=== PATIENT | male | born 1970 | race Caucasian/White ===

== ENCOUNTER 2017-07-10 11:33 | Emergency (ER) | payer MEDICAID ==
[2017-07-10 11:58] VITALS: BP 195/86
[2017-07-10] MEDS ORDERED: Diphtheria,Pertussis(Acell),Tetanus Vaccine 0.5 ML SDV IM ONE (12:03)
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
[2017-07-10] MEDS ORDERED: Lidocaine 1% 20 ML MDV INJECT ONE (12:12)
[2017-07-10] MEDS ORDERED: Bacitracin Oint 1 GM U/D Packet TOP ONE (12:13)
[2017-07-10] MEDS ORDERED: cefTRIAXone 1 GM Vial IM ONE (12:44)
[2017-07-10] MEDS ORDERED: Acetaminophen/HYDROcodone 325-5 MG Tab PO ONE (12:45)
--- NOTE | 2017-07-12 09:17 | CR ---
Hand Comp Min 3V Lt HISTORY: Injury COMPARISON: None FINDINGS: Soft tissue swelling adjacent to the fifth metacarpal. No fracture or dislocation. No radio paque foreign body.
== END 2017-07-10 13:09 | disposition home or self-care (01) ==
LOC: JP.ED 11:33
DX: S61.431A Puncture wound without foreign body of right hand, initial encounter (principal); F17.210 Nicotine dependence, cigarettes, uncomplicated; Z79.899 Other long term (current) drug therapy; W31.9XXA Contact with unspecified machinery, initial encounter
CPT/HCPCS: 73130; 90471; 90715; 96372; 99284; A9270; J0696

== ENCOUNTER 2017-09-12 12:36 | Emergency (ER) | payer MEDICAID ==
[2017-09-12 12:50] VITALS: BP 138/89
[2017-09-12] MEDS ORDERED: Ketorolac 60 MG/2 ML SDV IM ONE (13:22)
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
--- NOTE | 2017-09-13 12:18 | CR ---
Shoulder Comp Rt INDICATION: injury FINDINGS: Well-corticated calcification adjacent to the distal clavicle has an appearance most consis tent with an accessory ossicle or secondary to old trauma. Clinically correlate with patient point te nderness. Right shoulder otherwise negative.
--- NOTE | 2017-09-13 12:19 | CR ---
Chest 2V INDICATION: injury FINDINGS: Comparison 11/06/2016. Shallow inspiration. Chest otherwise negative.
== END 2017-09-12 14:06 | disposition home or self-care (01) ==
LOC: JP.ED 12:36
DX: S40.011A Contusion of right shoulder, initial encounter (principal); R07.81 Pleurodynia; I10 Essential (primary) hypertension; F17.210 Nicotine dependence, cigarettes, uncomplicated; Z79.01 Long term (current) use of anticoagulants; Z79.899 Other long term (current) drug therapy; X58.XXXA Exposure to other specified factors, initial encounter
CPT/HCPCS: 71046; 73030; 96372; 99284; J1885

== ENCOUNTER 2018-01-11 16:07 | Emergency (ER) | payer MEDICAID ==
[2018-01-11 17:08] VITALS: BP 146/75
--- NOTE | 2018-01-11 17:27 | EDM.PDOC ---
ED HPI GENERAL MEDICAL PROBLEM - General Chief Complaint: Lower Extremity Injury/Pain Stated Complaint: HURT LEFT LEG Time Seen by Provider: 01/11/18 17:20 Source of Information: Reports: Patient, Family, RN Notes Reviewed History Limitations: Reports: No Limitations - History of Present Illness INITIAL COMMENTS - FREE TEXT/NARRATIVE: 47-year-old gentleman presents emergency department today following trauma at work he was hit by a piece of sandblasting equipment in his left thigh he is experiencing pain in his thigh no bruising he does take Coumadin his INR was checked last week. By report he states it was high, his only complaint is pain Left Leg Pain Score (Numeric/FACES): 5 - Related Data Allergies Allergy/AdvReac Type Severity Reaction Status Date / Time No Known Allergies Allergy Verified 01/11/18 17:08 Home Meds: Home Meds Citalopram Hydrobromide [Citalopram HBr] 1 tab PO DAILY 03/21/16 [History] Eplerenone 2 tab PO DAILY 03/21/16 [History] Warfarin [Coumadin] 1 tab PO ASDIRECTED 03/21/16 [History] Warfarin [Coumadin] 7.5 mg PO ASDIRECTED 04/11/16 [History] Past Medical History HEENT History: Reports: Impaired Vision, Other (See Below) Other HEENT History: central serious rentinopathy Cardiovascular History: Reports: Hypertension Respiratory History: Reports: PE Musculoskeletal History: Reports: Back Pain, Chronic Psychiatric History: Reports: Anxiety Hematologic History: Reports: Anticoagulation Therapy, Bleeding Disorder - Infectious Disease History Infectious Disease History: Reports: Chicken Pox - Past Surgical History GI Surgical History: Reports: Colonoscopy Musculoskeletal Surgical History: Reports: Arthroscopic Procedure Social & Family History - Tobacco Use Smoking Status *Q: Current Every Day Smoker Years of Tobacco use: 15 Packs/Tins Daily: 0.5 Used Tobacco, but Quit: No Second Hand Smoke Exposure: Yes - Caffeine Use Caffeine Use: Reports: Coffee - Alcohol Use Days Per Week of Alcohol Use: 3 Number of Drinks Per Day: 3 Total Drinks Per Week: 9 - Recreational Drug Use Recreational Drug Use: No Review of Systems - Review of Systems Review Of Systems: See Below Musculoskeletal: Reports: Leg Pain, Muscle Pain Skin: Reports: No Symptoms Neurological: Reports: No Symptoms ED EXAM, GENERAL - Physical Exam Exam: See Below Free Text/Narrative:: Examination of the left leg I don't appreciate any bruising there is no edema noted does have point tenderness outer aspect of the left thigh Exam Limited By: No Limitations General Appearance: Alert, WD/WN, No Apparent Distress Course - Vital Signs Last Recorded V/S: Last Vital Signs Temp 98.1 F 01/11/18 17:06 Pulse 92 01/11/18 17:06 Resp 16 01/11/18 17:06 BP 146/75 H 01/11/18 17:06 Pulse Ox 95 01/11/18 17:06 Departure - Departure Time of Disposition: 17:27 Disposition: Home, Self-Care 01 Condition: Good Clinical Impression: Contusion of thigh - Discharge Information Referrals: German Lopez MD [Primary Care Provider] - Additional Instructions: Use ibuprofen as needed for pain control, use hydrocodone for breakthrough pain, Please followup with your primary care provider in 3-5 days if not better, please call return to the emergency department with worsening of symptoms. - Assessment/Plan Plan: Assessment Acuity = acute Site and laterality = contusion left thigh Etiology = secondary to trauma Manifestations = none Location of injury = Home Lab values = patient declined any further workup no x-rays were done or lab work done Plan Prescription written for hydrocodone 5/325 one tab by mouth 3 times a day when necessary total #6 follow-up with primary care 3-5 days if not better This note was dictated using [employer] voice recognition software please call with any questions on syntax or grammar.
== END 2018-01-11 17:34 | disposition home or self-care (01) ==
LOC: JP.ED 16:07
DX: S70.12XA Contusion of left thigh, initial encounter (principal); I10 Essential (primary) hypertension; F17.210 Nicotine dependence, cigarettes, uncomplicated; Z79.01 Long term (current) use of anticoagulants; Z79.899 Other long term (current) drug therapy; W22.8XXA Striking against or struck by other objects, initial encounter; Y99.0 Civilian activity done for income or pay
CPT/HCPCS: 99283

== ENCOUNTER 2018-12-26 19:38 | Emergency (ER) | payer MEDICAID ==
[2018-12-26 19:55] VITALS: BP 153/95
[2018-12-26] MEDS ORDERED: Sodium Chloride 0.9% 1,000 ML IV SCH (20:30)
--- NOTE | 2018-12-26 20:37 | EDM.PDOC ---
ED HPI GENERAL MEDICAL PROBLEM - General Chief Complaint: Respiratory Problem Stated Complaint: HAVING TROUBLE BREATHING Time Seen by Provider: 12/26/18 20:05 Source of Information: Reports: Patient, Family History Limitations: Reports: No Limitations - History of Present Illness INITIAL COMMENTS - FREE TEXT/NARRATIVE: 48-year-old male with left-sided chest pain for the past 2 days, pain with breathing and intermittent shortness of breath. 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 No fevers or chills, no recent trauma. Onset: Gradual Duration: Day(s): Location: Reports: Chest (Left anterior chest) Quality: Reports: Pressure, Sharp, Stabbing Worsens with: Reports: Other, Movement Associated Symptoms: Reports: No Other Symptoms Chest Pain Score (Numeric/FACES): 7 - Related Data Allergies Allergy/AdvReac Type Severity Reaction Status Date / Time No Known Allergies Allergy Verified 12/26/18 19:52 Home Meds: Home Meds Citalopram Hydrobromide [Citalopram HBr] 20 mg PO DAILY 03/21/16 [History] Eplerenone 2 tab PO DAILY 03/21/16 [History] Warfarin [Coumadin] 10 mg PO ASDIRECTED 03/21/16 [History] Warfarin [Coumadin] 7.5 mg PO ASDIRECTED 04/11/16 [History] Simvastatin 20 mg PO BEDTIME 12/26/18 [History] Past Medical History HEENT History: Reports: Impaired Vision, Other (See Below) Other HEENT History: central serious rentinopathy Cardiovascular History: Reports: Blood Clots/VTE/DVT, High Cholesterol, Hypertension Respiratory History: Reports: PE Musculoskeletal History: Reports: Back Pain, Chronic Psychiatric History: Reports: Anxiety Hematologic History: Reports: Anticoagulation Therapy, Bleeding Disorder - Infectious Disease History Infectious Disease History: Reports: Chicken Pox - Past Surgical History GI Surgical History: Reports: Colonoscopy Musculoskeletal Surgical History: Reports: Arthroscopic Procedure Social & Family History - Tobacco Use Smoking Status *Q: Current Every Day Smoker Years of Tobacco use: 20 Packs/Tins Daily: 0.5 - Caffeine Use Caffeine Use: Reports: Coffee - Recreational Drug Use Recreational Drug Use: No ED ROS GENERAL - Review of Systems Review Of Systems: See Below Constitutional: Denies: Fever, Chills Respiratory: Reports: Shortness of Breath. Denies: Cough Cardiovascular: Reports: Chest Pain. Denies: Dyspnea on Exertion, Palpitations GI/Abdominal: Denies: Nausea, Vomiting Musculoskeletal: Reports: Other (Chronic left shoulder pain) Skin: Reports: No Symptoms ED EXAM, GENERAL - Physical Exam Exam: See Below Exam Limited By: No Limitations General Appearance: Alert, No Apparent Distress Head: Atraumatic Neck: Normal Inspection Respiratory/Chest: No Respiratory Distress, Lungs Clear, Other (I can reproduce tenderness to the left costochondral area of the chest) Cardiovascular: Regular Rate, Rhythm GI/Abdominal: Soft, Non-Tender Course - Vital Signs Last Recorded V/S: Last Vital Signs Temp 96.3 F 12/26/18 19:50 Pulse 86 12/26/18 19:50 Resp 20 12/26/18 19:50 BP 153/95 H 12/26/18 19:50 Pulse Ox 98 12/26/18 19:50 - Orders/Labs/Meds Meds: Medications Discontinued Medications Generic Name Dose Route Start Last Admin Trade Name Freq PRN Reason Stop Dose Admin Sodium Chloride 1,000 mls @ 1,000 mls/hr 12/26/18 20:30 12/26/18 20:39 Normal Saline IV 1,000 mls/hr ASDIRECTED COSME Administration Sodium Chloride 100 mls @ 3 mls/sec 12/26/18 20:45 12/26/18 20:55 Normal Saline IV 3 mls/sec ASDIRECTED COSME Administration Iopamidol 100 ml 12/26/18 20:45 12/26/18 20:55 Isovue-370 (76%) IV 100 ml . DIRECTED COSME Administration Sodium Chloride 10 ml 12/26/18 20:41 12/26/18 20:55 Saline Flush FLUSH 10 ml ASDIRECTED PRN Administration Keep Vein Open - Re-Assessments/Exams Free Text/Narrative Re-Assessment/Exam: 12/26/18 21:29 CT of the chest and hands with IV contrast was negative for PE. Patient was reassured and will continue his current medications, adding Tylenol for costochondritis and increasing activity as tolerated. Departure - Departure Time of Disposition: 21:37 Disposition: Home, Self-Care 01 Condition: Good Clinical Impression: Acute costochondritis - Discharge Information Instructions: Costochondritis, [id number] Referrals: Lopez,German C, MD [Primary Care Provider] - Forms: ED Department Discharge Care Plan Goals: Ice to the sore area over the next couple of days, increasing activity as tolerated and Tylenol may be beneficial. Consider rechecking in 2-3 days if not improving his physical therapy may be worthwhile. Return anytime if worsening such as increasing shortness of breath or fever.
[2018-12-26] MEDS ORDERED: Sodium Chloride 0.9% 10 ML Syringe FLUSH PRN (20:41)
[2018-12-26] MEDS ORDERED: Sodium Chloride 0.9% 100 ML IV SCH (20:45)
[2018-12-26] MEDS ORDERED: Iopamidol 755 Mg/ML 100 ML Bottle IV SCH (20:45)
--- NOTE | 2018-12-26 21:23 | CRLCT ---
INDICATION: Shortness of breath, history pulmonary embolism TECHNIQUE: CT chest with i.v. contrast using pulmonary angiographic technique. Coronal and sagittal reformats were obtained. CONTRAST: 100 mL Isovue 370 COMPARISON: None FINDINGS: Cardiovascular: The pulmonary arteries are unremarkable in enhancement with no evidence of acute pulmonary embolism. The heart has an unremarkable appearance and size. No sign of aneurysm in the thoracic aorta. Mediastinum: Minimal nodular tissue is present in the anterior mediastinum which may be due to thymic rebound thymic hyperplasia. Lung: There is a 4 mm nodule in the right lower lobe, abutting the right major fissure on image 79. On image 67, there is a 2 mm nodule present in the dome of the right middle lobe and in the anterior base of the right upper lobe, both too small further characterize. Pleura and pericardium: No sign of pleural effusion seen. No significant pericardial effusion is present. Chest wall and axilla: No mass or adenopathy seen. Bone: Unremarkable for age. Upper abdomen: There is a 1.6 cm cyst in the dome of the liver. A cyst is partially visualized in the right posterior segment measuring 8 mm. IMPRESSIONS: 1. No CT evidence of acute pulmonary emboli seen. 2. Subcentimeter pulmonary nodules are present within the right lung. Follow-up chest CT in 3 months is recommended to document stability. Dictated by Timothy Cuadra MD @ 12/26/2018 9:22:22 PM Please note that all CT scans at this facility use dose modulation, iterative reconstruction, and/or weight-based dosing when appropriate to reduce radiation dose to as low as reasonably achievable. Dictated by: Timothy Cuadra MD @ 12/26/2018 21:22:32 (Electronically Signed)
== END 2018-12-26 21:37 | disposition home or self-care (01) ==
LOC: JP.ED 19:38
DX: M94.0 Chondrocostal junction syndrome [Tietze] (principal); F41.9 Anxiety disorder, unspecified; I10 Essential (primary) hypertension; E78.00 Pure hypercholesterolemia, unspecified; F17.210 Nicotine dependence, cigarettes, uncomplicated; Z79.01 Long term (current) use of anticoagulants; Z79.899 Other long term (current) drug therapy
CPT/HCPCS: 71275; 96360; 99284; J7030; Q9967

== ENCOUNTER 2019-03-08 17:54 | Emergency (ER) | payer MEDICAID ==
[2019-03-08 18:28] VITALS: BP 132/94; PULSE 87
--- NOTE | 2019-03-08 18:50 | EDM.PDOC ---
ED HPI GENERAL MEDICAL PROBLEM - General Chief Complaint: Back Pain or Injury Stated Complaint: HEMATOMA Time Seen by Provider: 03/08/19 18:44 Source of Information: Reports: Patient, Family History Limitations: Reports: No Limitations - History of Present Illness INITIAL COMMENTS - FREE TEXT/NARRATIVE: pt arrived with a swelling over the rt shoulder blade area extending to the claviular area. Onset: Gradual, Other ( last 36 hours. ) Duration: Hour(s): Location: Reports: Chest Associated Symptoms: Reports: Other (pain over the shoulder blade. ) Right Shoulder Pain Score (Numeric/FACES): 8 - Related Data Allergies Allergy/AdvReac Type Severity Reaction Status Date / Time No Known Allergies Allergy Verified 03/08/19 18:30 Home Meds: Home Meds Eplerenone 2 tab PO DAILY 03/21/16 [History] Warfarin [Coumadin] 10 mg PO ASDIRECTED 03/21/16 [History] Warfarin [Coumadin] 7.5 mg PO ASDIRECTED 04/11/16 [History] Simvastatin 20 mg PO BEDTIME 12/26/18 [History] buPROPion [buPROPion XL] 150 mg PO BEDTIME 03/08/19 [History] Past Medical History HEENT History: Reports: Impaired Vision, Other (See Below) Other HEENT History: central serious rentinopathy Cardiovascular History: Reports: Blood Clots/VTE/DVT, High Cholesterol, Hypertension Respiratory History: Reports: PE Gastrointestinal History: Reports: None Musculoskeletal History: Reports: Back Pain, Chronic Psychiatric History: Reports: Anxiety Hematologic History: Reports: Anticoagulation Therapy, Bleeding Disorder - Infectious Disease History Infectious Disease History: Reports: Chicken Pox - Past Surgical History Head Surgeries/Procedures: Reports: None HEENT Surgical History: Reports: None Cardiovascular Surgical History: Reports: None Respiratory Surgical History: Reports: None GI Surgical History: Reports: Colonoscopy Musculoskeletal Surgical History: Reports: Arthroscopic Procedure Dermatological Surgical History: Reports: None Social & Family History - Tobacco Use Smoking Status *Q: Current Every Day Smoker Years of Tobacco use: 30 Packs/Tins Daily: 0.5 Used Tobacco, but Quit: No - Caffeine Use Caffeine Use: Reports: Coffee, Soda, Tea - Recreational Drug Use Recreational Drug Use: No ED ROS GENERAL - Review of Systems Review Of Systems: See Below Constitutional: Reports: No Symptoms HEENT: Reports: No Symptoms Respiratory: Reports: No Symptoms Cardiovascular: Reports: No Symptoms Endocrine: Reports: No Symptoms GI/Abdominal: Reports: No Symptoms : Reports: No Symptoms Musculoskeletal: Reports: Other (hematoma over the rt shoulder blade. ) Skin: Reports: No Symptoms ED EXAM, UPPER BACK/NECK PAIN - Physical Exam Exam: See Below Text/Narrative:: pt arrived with pain and swelling in the rt shoulder blde area. Exam Limited By: No Limitations General Appearance: Alert, Moderate Distress Ears Exam: Normal TMs Nose Exam: Normal Inspection Throat/Mouth Exam: Normal Inspection Head Exam: Atraumatic Neck Exam: Other (pt is tender in the rt lower post cervical area. There is marked swelling over his rt shoulder blade. He has a large hematoma over the blade area. This is very tender. ) Cardiovascular/Respiratory: Regular Rate, Rhythm GI/Abdominal: Soft, Non-Tender (Male) Exam: Deferred Back Exam: Normal Inspection Extremities: Normal Inspection Neurologic: Alert Psychiatric: Normal Affect Course - Vital Signs Last Recorded V/S: Last Vital Signs Temp 35.4 C 03/08/19 18:35 Pulse 87 03/08/19 18:35 Resp 16 03/08/19 18:35 BP 132/94 H 03/08/19 18:35 Pulse Ox 97 03/08/19 18:35 - Orders/Labs/Meds Labs: Laboratory Tests 03/08/19 03/08/19 03/08/19 Range/Units 18:43 18:59 18:59 WBC 8.7 (4.5-11.0) K/uL RBC 4.78 (4.30-5.90) M/uL Hgb 15.0 (12.0-15.0) g/dL Hct 43.8 (40.0-54.0) % MCV 92 (80-98) fL MCH 31 (27-31) pg MCHC 34 (32-36) % Plt Count 274 (150-400) K/uL Neut % (Auto) 57 (36-66) % Lymph % (Auto) 31 (24-44) % [place] % (Auto) 9 H (2-6) % Eos % (Auto) 3 (2-4) % Baso % (Auto) 1 (0-1) % PT 30.8 H (9.5-12.0) sec INR 3.04 H (0.80-1.20) Sodium 140 (140-148) mmol/L Potassium 4.1 (3.6-5.2) mmol/L Chloride 105 (100-108) mmol/L Carbon Dioxide 27 (21-32) mmol/L Anion Gap 8.1 (5.0-14.0) mmol/L BUN 15 (7-18) mg/dL Creatinine 1.1 (0.8-1.3) mg/dL Est Cr Clr Drug Dosing 83.02 mL/min Estimated GFR (MDRD) > 60 (>60) Glucose 92 (74-106) mg/dL Calcium 8.9 (8.5-10.1) mg/dL Total Bilirubin 0.6 (0.2-1.0) mg/dL AST 27 (15-37) U/L ALT 50 (12-78) U/L Alkaline Phosphatase 89 (46-116) U/L Total Protein 7.4 (6.4-8.2) g/dL Albumin 4.1 (3.4-5.0) g/dL Globulin 3.3 (2.3-3.5) g/dL Albumin/Globulin Ratio 1.2 (1.2-2.2) Meds: Medications Discontinued Medications Generic Name Dose Route Start Last Admin Trade Name Freq PRN Reason Stop Dose Admin Oxycodone/Acetaminophen 1 tab 03/08/19 20:01 Percocet 325-5 Mg PO 03/08/19 20:02 ONETIME ONE - Re-Assessments/Exams Free Text/Narrative Re-Assessment/Exam: 03/08/19 20:07 in the last 2 days he has had a elevated inr to 5. He does nor know of a injury. He must have leaned against something and he states he has been doing alot of overhead work. His INR is down to 3.00 at this point. He will not use coumadin tomorrow. 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 Departure - Departure Time of Disposition: 20:02 Disposition: Home, Self-Care 01 Condition: Fair Clinical Impression: Traumatic hematoma of right shoulder - Discharge Information Referrals: German Lopez MD [Primary Care Provider] - Forms: ED Department Discharge Care Plan Goals: percocet 5/325 q6h prn for pain #10. cool pack to rt shoulder, rest lying on his side to avoid pressure on the site. , no coumadin tomorrow. INR on wednesday and an appt with Dr Lopez on Wednesday. He is warned that this will sopread out and look very black and blue. Low activity.
[2019-03-08] MEDS ORDERED: Acetaminophen/oxyCODONE 325-5 MG Tab PO ONE (20:01)
--- NOTE | 2019-03-08 20:09 | CRLCR ---
INDICATION: Hematoma to right shoulder, back TECHNIQUE: Chest radiograph 2 views COMPARISON: 09/12/2017 FINDINGS: Mediastinum: The mediastinum is normal in appearance. The heart silhouette is normal in size and morphology. Lung: Both lungs are unremarkable in appearance. No sign of pleural effusion seen. No pneumothorax is identified. IMPRESSION: 1. No acute cardiopulmonary disease is seen. Dictated by: Timothy Cuadra MD @ 03/08/2019 20:07:40 (Electronically Signed)
== END 2019-03-08 20:30 | disposition home or self-care (01) ==
LOC: JP.ED 17:54
DX: S40.011A Contusion of right shoulder, initial encounter (principal); E78.00 Pure hypercholesterolemia, unspecified; I10 Essential (primary) hypertension; F41.9 Anxiety disorder, unspecified; F17.210 Nicotine dependence, cigarettes, uncomplicated; Z79.899 Other long term (current) drug therapy; Z79.01 Long term (current) use of anticoagulants; X58.XXXA Exposure to other specified factors, initial encounter
CPT/HCPCS: 36415; 71046; 80053; 85025; 85610; 99283; A9270

== ENCOUNTER 2021-08-20 10:51 | Emergency (ER) | payer MEDICAID ==
--- NOTE | 2021-08-20 11:19 | EDM.PDOC ---
ED HPI GENERAL MEDICAL PROBLEM - General Chief Complaint: Chest Pain Stated Complaint: BACK PAIN AND TROUBLE BREATHING Time Seen by Provider: 08/20/21 11:12 Source of Information: Reports: Patient, RN Notes Reviewed History Limitations: Reports: No Limitations - History of Present Illness INITIAL COMMENTS - FREE TEXT/NARRATIVE: 51-year-old gentleman presents emergency department day complaint of chest pain, he states that chest pain for about 3 days is constant in nature he rates it 8 out of 10 does feel short of breath at times has been diaphoretic no nausea does have a history of pulmonary embolism currently on Coumadin INR check today was 2.9. Middle Chest Pain Score (Numeric/FACES): 8 - Related Data Allergies Allergy/AdvReac Type Severity Reaction Status Date / Time No Known Allergies Allergy Verified 03/08/19 18:30 Home Meds: Home Meds Eplerenone 2 tab PO DAILY 03/21/16 [History] Warfarin [Coumadin] 10 mg PO ASDIRECTED 03/21/16 [History] Warfarin [Coumadin] 7.5 mg PO ASDIRECTED 04/11/16 [History] Simvastatin 20 mg PO BEDTIME 12/26/18 [History] buPROPion [buPROPion XL] 150 mg PO BEDTIME 03/08/19 [History] Past Medical History HEENT History: Reports: Impaired Vision, Other (See Below) Other HEENT History: central serious rentinopathy Cardiovascular History: Reports: Blood Clots/VTE/DVT, High Cholesterol, Hypertension Respiratory History: Reports: PE Musculoskeletal History: Reports: Back Pain, Chronic Psychiatric History: Reports: Anxiety Hematologic History: Reports: Anticoagulation Therapy, Bleeding Disorder - Infectious Disease History Infectious Disease History: Reports: Chicken Pox - Past Surgical History Head Surgeries/Procedures: Reports: None HEENT Surgical History: Reports: None Cardiovascular Surgical History: Reports: None Respiratory Surgical History: Reports: None GI Surgical History: Reports: Colonoscopy Musculoskeletal Surgical History: Reports: Arthroscopic Procedure Dermatological Surgical History: Reports: None Social & Family History - Tobacco Use Tobacco Use Status *Q: Current Every Day Tobacco User Years of Tobacco use: 25 Packs/Tins Daily: 0.5 - Caffeine Use Caffeine Use: Reports: Coffee, Soda, Tea ED ROS GENERAL - Review of Systems Review Of Systems: See Below Constitutional: Reports: Diaphoresis HEENT: Reports: No Symptoms Respiratory: Reports: Shortness of Breath Cardiovascular: Reports: Chest Pain, Dyspnea on Exertion GI/Abdominal: Reports: No Symptoms ED EXAM, GENERAL - Physical Exam Exam: See Below Exam Limited By: No Limitations General Appearance: Alert, WD/WN, No Apparent Distress Respiratory/Chest: No Respiratory Distress, Lungs Clear, Normal Breath Sounds, No Accessory Muscle Use, Chest Non-Tender Cardiovascular: Regular Rate, Rhythm, No Murmur GI/Abdominal: Soft, Non-Tender #1 Interpretation EKG Date: 08/20/21 Time: 11:19 Rhythm: NSR [place]: Normal P-Wave: Present QRS: Normal ST-T: Normal QT: Normal Comparison: NA - No Prior EKG Course - Vital Signs Last Recorded V/S: Last Vital Signs Temp 97.1 F 08/20/21 11:21 Pulse 64 08/20/21 12:27 Resp 13 08/20/21 12:27 BP 125/91 H 08/20/21 12:27 Pulse Ox 98 08/20/21 12:27 - Orders/Labs/Meds Orders: Active Orders 24 hr Category Date Time Status Cardiac Monitoring [RC] .As Directed Care 08/20/21 11:16 Active EKG 12 Lead [EK] Stat Ther 08/20/21 11:16 Ordered Labs: Laboratory Tests 08/20/21 08/20/21 Range/Units 11:25 11:25 WBC 6.0 (4.5-11.0) K/uL RBC 4.56 (4.30-5.90) M/uL Hgb 14.6 (12.0-15.0) g/dL Hct 41.9 (40.0-54.0) % MCV 92 (80-98) fL MCH 32 H (27-31) pg MCHC 35 (32-36) % Plt Count 264 (150-400) K/uL Neut % (Auto) 50.2 (36-66) % Lymph % (Auto) 33.4 (24-44) % [place] % (Auto) 11.8 H (2-6) % Eos % (Auto) 3.6 (2-4) % Baso % (Auto) 1.0 (0-1) % Sodium 139 L (140-148) mmol/L Potassium 4.0 (3.6-5.2) mmol/L Chloride 103 (100-108) mmol/L Carbon Dioxide 27 (21-32) mmol/L Anion Gap 13.0 (5.0-14.0) mmol/L BUN 19 H (7-18) mg/dL Creatinine 0.9 (0.8-1.3) mg/dL Est Cr Clr Drug Dosing 98.19 mL/min Estimated GFR (MDRD) > 60 (>60) Glucose 104 (74-106) mg/dL Calcium 8.5 (8.5-10.1) mg/dL Total Bilirubin 0.4 (0.2-1.0) mg/dL AST 29 (15-37) U/L ALT 60 (12-78) U/L Alkaline Phosphatase 63 (46-116) U/L Troponin I High Sens 9.2 (<=60.3) pg/mL Total Protein 6.6 (6.4-8.2) g/dL Albumin 3.9 (3.4-5.0) g/dL Globulin 2.7 (2.3-3.5) g/dL Albumin/Globulin Ratio 1.4 (1.2-2.2) Meds: Medications Discontinued Medications Generic Name Dose Route Start Last Admin Trade Name Freq PRN Reason Stop Dose Admin Al Hydroxide/Mg Hydroxide 15 0 ml 08/20/21 12:08 ml/ Lidocaine HCl 15 ml PO 08/20/21 12:09 ONETIME ONE Ketorolac Tromethamine 30 mg 08/20/21 11:17 08/20/21 11:32 Ketorolac 30 Mg/Ml Sdv IM 08/20/21 11:18 30 mg ONETIME ONE Administration Departure - Departure Time of Disposition: 12:39 Disposition: Home, Self-Care 01 Condition: Fair Clinical Impression: Atypical chest pain Instructions: Nonspecific Chest Pain, Adult Referrals: Toni Rodriguez MD [Primary Care Provider] - Forms: ED Department Discharge Additional Instructions: Try nonsteroidal anti-inflammatory such as naproxen or Aleve Motrin, please followup with your primary care provider in 3-5 days if not better, please call return to the emergency department with worsening of symptoms. Sepsis Event Note (ED) - Evaluation Sepsis Screening Result: No Definite Risk - Focused Exam Vital Signs: Vital Signs Temp Pulse Resp BP Pulse Ox 08/20/21 12:27 64 13 125/91 H 98 08/20/21 12:00 68 13 130/93 H 98 08/20/21 11:21 97.1 F 74 17 147/98 H 99 - My Orders Last 24 Hours: My Active Orders 08/20/21 11:16 Cardiac Monitoring [RC] .As Directed EKG 12 Lead [EK] Stat - Assessment/Plan Last 24 Hours: My Active Orders 08/20/21 11:16 Cardiac Monitoring [RC] .As Directed EKG 12 Lead [EK] Stat Plan: Assessment Acuity = acute Site and laterality = atypical chest pain Etiology = suspicious for muscle skeletal Manifestations = none Location of injury = Home Lab values = CBC, CMP, troponin, chest x-ray, EKG all within normal limits Plan He had good relief with the Toradol injection provided, have him follow-up with his primary care in the next 3 to 5 days for further evaluation he will continue anti-inflammatories at home This note was dictated using [employer] voice recognition software please call with any questions on syntax or grammar.
[2021-08-20] MEDS: Ketorolac 30 MG/ML SDV IM ONE (11:32)
--- NOTE | 2021-08-20 12:00 | CR ---
CHEST: Portable 08/20/2021 and 11:27 AM CLINICAL HISTORY:Chest pain COMPARISON:2019 FINDINGS: The heart size, pulmonary vascularity and hilar structures are normal. No infiltrate effusion or pneumothorax is seen. IMPRESSION: No acute cardiopulmonary process.
[2021-08-20 12:28] VITALS: BP 125/91; PULSE 64
[2021-08-20] MEDS: Alum Hydrox/Mag Hydrox/Simeth 15 ML, Lidocaine 2% 15 ML PO ONE ×2 (12:55)
== END 2021-08-20 13:03 | disposition home or self-care (01) ==
LOC: JP.ED 10:51
DX: R07.89 Other chest pain (principal); Z72.0 Tobacco use; Z79.01 Long term (current) use of anticoagulants; Z79.899 Other long term (current) drug therapy
CPT/HCPCS: 36415; 71045; 80053; 84484; 85025; 93005; 96372; 99285; A9270; J1885

== ENCOUNTER 2022-12-20 19:07 | Inpatient (IN) | payer MEDICAID ==
[2022-12-20] MEDS ORDERED: Sodium Chloride 0.9% 10 ML Syringe FLUSH PRN (19:34)
[2022-12-20 19:50] LABS: BASOPHILS ABSOLUTE AUTO 0.04 K/uL (0.00-0.10); BASOPHILS PERCENT AUTO 0.5 % (0.1-1.3); EOSINOPHILS ABSOLUTE AUTO 0.31 K/uL (0.00-0.40); EOSINOPHILS PERCENT AUTO 3.7 % (0.0-5.4); HEMATOCRIT 26.2 % (38.4-49.7); HEMOGLOBIN 8.6 g/dL (12.9-16.9); IMMATURE GRAN ABSOLUTE AUTO 0.03 K/uL (0.00-0.23); IMMATURE GRAN PERCENT AUTO 0.4 % (0.0-0.7); LYMPHOCYTES ABSOLUTE AUTO 2.32 K/uL (0.8-3.3); LYMPHOCYTES PERCENT AUTO 27.4 % (11.4-47.7); MEAN CORPUSCULAR HEMOGLOBIN 32.8 pg (31.6-35.5); MEAN CORPUSCULAR HGB CONC 32.8 g/dL (31.6-35.5); MONOCYTES ABSOLUTE AUTO 0.89 K/uL (0.20-0.90); MONOCYTES PERCENT AUTO 10.5 % (3.3-12.6); NEUTROPHILS ABSOLUTE AUTO 4.88 K/uL (1.0-7.6); NEUTROPHILS PERCENT AUTO 57.5 % (40.0-78.1); PLATELET COUNT,PLT 302 K/uL (130-375); RED BLOOD CELL COUNT 2.62 M/uL (4.14-5.76); WHITE BLOOD CELL COUNT,WBC 8.5 K/uL (3.2-11.0)
[2022-12-20 20:05] LABS: CALCIUM 8.4 mg/dL (8.5-10.1); CREATININE 1.1 mg/dL (0.8-1.3); EST CRCL DRUG DOSING (CG) 79.45 mL/min; POTASSIUM,K 3.9 mmol/L (3.6-5.2)
[2022-12-20 20:07] LABS: ANION GAP 6.9 mmol/L (5.0-14.0); INR 1.6; PROTHROMBIN TIME 16.1 sec (9.2-10.6)
[2022-12-20] MEDS ORDERED: Iopamidol 612 MG/ML 100 ML Bottle IV SCH (20:15)
[2022-12-20] MEDS ORDERED: Sodium Chloride 0.9% 50 ML IV SCH (20:15)
[2022-12-20] MEDS ORDERED: HYDROmorphone 1 MG/ML Syringe IVPUSH ONE (21:27)
[2022-12-20] MEDS ORDERED: Docusate Sodium 100 MG Cap PO PRN (23:17)
[2022-12-20] MEDS ORDERED: Naloxone 0.4 MG/ML SDV IVPUSH PRN ×2 (23:17)
[2022-12-20] MEDS ORDERED: Ondansetron 4 MG/2 ML SDV IV PRN (23:17)
[2022-12-20] MEDS ORDERED: Bisacodyl 5 MG Tab PO PRN (23:17)
[2022-12-20] MEDS ORDERED: Acetaminophen 325 MG Tab PO PRN (23:17)
[2022-12-20] MEDS ORDERED: diphenhydrAMINE 25 MG Cap PO PRN (23:17)
[2022-12-20] MEDS: HYDROmorphone/Normal Saline 6 MG/30 ML PCA Vial IV PRN (23:32)
[2022-12-20] MEDS: Sodium Chloride 0.9% 1,000 ML IV SCH (23:42)
[2022-12-20] MEDS: Citalopram 20 MG Tab PO SCH (23:43)
[2022-12-20] MEDS: cefTRIAXone 1 GM in Sodium Chloride 0.9% 50 ML IV SCH (23:45)
[2022-12-21 04:37] LABS: BASOPHILS ABSOLUTE AUTO 0.05 K/uL (0.00-0.10); BASOPHILS PERCENT AUTO 0.6 % (0.1-1.3); EOSINOPHILS ABSOLUTE AUTO 0.34 K/uL (0.00-0.40); EOSINOPHILS PERCENT AUTO 3.8 % (0.0-5.4); HEMATOCRIT 25.5 % (38.4-49.7); HEMOGLOBIN 8.3 g/dL (12.9-16.9); IMMATURE GRAN PERCENT AUTO 0.2 % (0.0-0.7); LYMPHOCYTES ABSOLUTE AUTO 2.61 K/uL (0.8-3.3); LYMPHOCYTES PERCENT AUTO 29.2 % (11.4-47.7); MEAN CORPUSCULAR HEMOGLOBIN 32.8 pg (31.6-35.5); MEAN CORPUSCULAR HGB CONC 32.5 g/dL (31.6-35.5); MEAN CORPUSCULAR VOLUME 100.8 fL (81.4-99.0); MONOCYTES ABSOLUTE AUTO 0.91 K/uL (0.20-0.90); MONOCYTES PERCENT AUTO 10.2 % (3.3-12.6); PLATELET COUNT,PLT 327 K/uL (130-375); RED BLOOD CELL COUNT 2.53 M/uL (4.14-5.76); WHITE BLOOD CELL COUNT,WBC 8.9 K/uL (3.2-11.0)
[2022-12-21 04:46] LABS: IMMATURE GRAN ABSOLUTE AUTO 0.02 K/uL (0.00-0.23)
[2022-12-21 04:49] LABS: CALCIUM 7.9 mg/dL (8.5-10.1); EST CRCL DRUG DOSING (CG) 87.39 mL/min; POTASSIUM,K 4.1 mmol/L (3.6-5.2)
[2022-12-21 04:57] LABS: ANION GAP 6.1 mmol/L (5.0-14.0)
[2022-12-21] MEDS: HYDROmorphone/Normal Saline 6 MG/30 ML PCA Vial IV PRN ×2 (05:41→14:09)
[2022-12-21] MEDS: Pantoprazole 40 MG Tab.CR PO SCH (08:22)
[2022-12-21] MEDS: Gabapentin 400 MG Cap PO SCH ×3 (08:23→21:29)
[2022-12-21] MEDS: Citalopram 20 MG Tab PO SCH (08:23)
[2022-12-21] MEDS: Sodium Chloride 0.9% 1,000 ML IV SCH (08:34)
[2022-12-21] MEDS ORDERED: Pantoprazole 40 MG Vial IV SCH (09:00)
[2022-12-21] MEDS ORDERED: Enoxaparin 30 MG/0.3 ML Syringe SUBCUT SCH (09:00)
[2022-12-21] MEDS: Enoxaparin 40 MG/0.4 ML Syringe SUBCUT SCH (09:12)
[2022-12-21] MEDS ORDERED: Bupivacaine 0.5% 30 ML SDV ONE (12:12)
[2022-12-21] MEDS ORDERED: ceFAZolin 2 GM in Premix Bag 1 BAG IV ONE (13:30)
[2022-12-21] MEDS ORDERED: ceFAZolin 2 GM in Sodium Chloride 0.9% 50 ML IV ONE (13:30)
[2022-12-21] MEDS ORDERED: Propofol 200 MG/20 ML SDV ONE (15:39)
[2022-12-21] MEDS ORDERED: Midazolam 1 MG/ML 2 ML SDV ONE ×2 (15:39→16:00)
[2022-12-21] MEDS ORDERED: fentaNYL 100 MCG/2 ML SDV ONE (15:39)
[2022-12-21] MEDS ORDERED: Lactated Ringers 1,000 ML ONE (16:01)
[2022-12-21] MEDS ORDERED: Acetaminophen/HYDROcodone 325-5 MG Tab PO PRN (16:34)
[2022-12-21 17:41] LABS: INR 1.3; PROTHROMBIN TIME 12.8 sec (9.2-10.6)
[2022-12-21] MEDS ORDERED: atorvaSTATin 10 MG Tab PO SCH (21:00)
[2022-12-21] MEDS ORDERED: Non-Formulary Medication 1 Each (Simvastatin [Simvastatin] 10 MG Tablet) PO SCH (21:00)
[2022-12-21] MEDS: cefTRIAXone 1 GM in Sodium Chloride 0.9% 50 ML IV SCH (21:30)
[2022-12-21] MEDS ORDERED: diphenhydrAMINE 25 MG Cap ONE (23:23)
[2022-12-22] MEDS: HYDROmorphone/Normal Saline 6 MG/30 ML PCA Vial IV PRN (01:03)
[2022-12-22] MEDS ORDERED: Calcium Carbonate 500 MG Tab.Chew PO PRN (02:19)
[2022-12-22] MEDS ORDERED: HYDROmorphone 1 MG/ML Syringe IVPUSH ONE (02:51)
[2022-12-22] MEDS ORDERED: Alum Hydrox/Mag Hydrox/Simeth 15 ML, Lidocaine 2% 15 ML PO ONE ×2 (02:51)
[2022-12-22] MEDS ORDERED: Aluminum Hydroxide/Magnesium Hydroxide/Simethicone Susp 30 ML Cup ONE (03:05)
[2022-12-22 04:21] LABS: BASOPHILS ABSOLUTE AUTO 0.06 K/uL (0.00-0.10); BASOPHILS PERCENT AUTO 0.7 % (0.1-1.3); EOSINOPHILS PERCENT AUTO 3.6 % (0.0-5.4); HEMATOCRIT 25.7 % (38.4-49.7); HEMOGLOBIN 8.4 g/dL (12.9-16.9); IMMATURE GRAN ABSOLUTE AUTO 0.03 K/uL (0.00-0.23); IMMATURE GRAN PERCENT AUTO 0.4 % (0.0-0.7); LYMPHOCYTES PERCENT AUTO 26.3 % (11.4-47.7); MEAN CORPUSCULAR HEMOGLOBIN 32.7 pg (31.6-35.5); MEAN CORPUSCULAR HGB CONC 32.7 g/dL (31.6-35.5); MONOCYTES ABSOLUTE AUTO 0.97 K/uL (0.20-0.90); MONOCYTES PERCENT AUTO 11.6 % (3.3-12.6); NEUTROPHILS ABSOLUTE AUTO 4.81 K/uL (1.0-7.6); NEUTROPHILS PERCENT AUTO 57.4 % (40.0-78.1); PLATELET COUNT,PLT 329 K/uL (130-375); RED BLOOD CELL COUNT 2.57 M/uL (4.14-5.76); WHITE BLOOD CELL COUNT,WBC 8.4 K/uL (3.2-11.0)
[2022-12-22 04:37] LABS: CALCIUM 7.9 mg/dL (8.5-10.1); EST CRCL DRUG DOSING (CG) 87.39 mL/min; INR 1.1; MAGNESIUM 1.9 mg/dL (1.8-2.4); PROTHROMBIN TIME 11.1 sec (9.2-10.6)
[2022-12-22] MEDS: Acetaminophen/HYDROcodone 325-10 MG Tab PO PRN ×2 (08:05→11:56)
[2022-12-22] MEDS: Citalopram 20 MG Tab PO SCH (08:08)
[2022-12-22] MEDS: Gabapentin 400 MG Cap PO SCH (08:08)
[2022-12-22] MEDS: Pantoprazole 40 MG Tab.CR PO SCH (08:08)
[2022-12-22] MEDS ORDERED: Warfarin 5 MG Tab PO ONE (09:00)
[2022-12-22] MEDS: Enoxaparin 40 MG/0.4 ML Syringe SUBCUT SCH (10:22)
[2022-12-22 10:58] VITALS: BP 119/79; PULSE 76
[2022-12-22] MEDS ORDERED: Acetaminophen/HYDROcodone 325-5 MG Tab PO PRN (11:53)
[2022-12-22] MEDS ORDERED: Acetaminophen/HYDROcodone 325-10 MG Tab PO PRN (11:58)
== END 2022-12-22 12:45 | disposition home or self-care (01) | DRG 501 ==
LOC: JP.ED 19:07 → JP.MS 22:10
PROVIDERS: ADMIT Hospitalist; ATTEND Specialist
PROC: 0K9S0ZZ Drainage of Right Lower Leg Muscle, Open Approach (ICD-10-PCS; principal; 2022-12-21)
DX: M79.81 Nontraumatic hematoma of soft tissue (principal); D62 Acute posthemorrhagic anemia; D68.51 Activated protein C resistance; D68.8 Other specified coagulation defects; E78.00 Pure hypercholesterolemia, unspecified; I10 Essential (primary) hypertension; R61 Generalized hyperhidrosis; M54.2 Cervicalgia; G89.29 Other chronic pain; M79.651 Pain in right thigh; F17.210 Nicotine dependence, cigarettes, uncomplicated; M54.9 Dorsalgia, unspecified; Z86.718 Personal history of other venous thrombosis and embolism; Z79.899 Other long term (current) drug therapy; Z79.01 Long term (current) use of anticoagulants; Z86.711 Personal history of pulmonary embolism
CPT/HCPCS: 36415; 73702-RT; 80048; 83735; 85025; 85610; 93005; 93010; 96374; 96375; 99222; 99232; 99238; 99285; 99285-25; A9270-GY; J0696; J1170; J2250; J2704; J3010; J3490; J7030; J7120; Q9967; U0002

== ENCOUNTER → 2023-07-21 | Day surgery (SDC) | payer MEDICAID ==
[~2023-07-21] MED LIST: Lactated Ringers 1,000 ML IV SCH; Midazolam 1 MG/ML 2 ML SDV ONE; Propofol 200 MG/20 ML SDV ONE; fentaNYL 100 MCG/2 ML SDV ONE
[2023-07-21 09:28] VITALS: BP 123/90; PULSE 70
== END ==
LOC: JP.SDS 05:59
PROVIDERS: ATTEND Student in an Organized Health Care Education/Training Program
DX: K62.1 Rectal polyp (principal); K92.1 Melena; K29.70 Gastritis, unspecified, without bleeding; K44.9 Diaphragmatic hernia without obstruction or gangrene; K21.00 Gastro-esophageal reflux disease with esophagitis, without bleeding; K64.0 First degree hemorrhoids; I10 Essential (primary) hypertension; F41.9 Anxiety disorder, unspecified; E78.5 Hyperlipidemia, unspecified; Z79.899 Other long term (current) drug therapy
CPT/HCPCS: 43239; 45380; 88305; 88342; J2250; J2704; J3010; J7120

== ENCOUNTER 2023-12-30 15:54 | Emergency (ER) | payer MEDICAID ==
[2023-12-30 16:22] VITALS: PULSE 92
[2023-12-30 17:06] VITALS: BP 138/108
[2023-12-30 17:12] LABS: BASOPHILS ABSOLUTE AUTO 0.06 K/uL (0.00-0.10); BASOPHILS PERCENT AUTO 0.6 % (0.1-1.3); EOSINOPHILS ABSOLUTE AUTO 0.16 K/uL (0.00-0.40); EOSINOPHILS PERCENT AUTO 1.7 % (0.0-5.4); HEMATOCRIT 37.6 % (38.4-49.7); HEMOGLOBIN 12.9 g/dL (12.9-16.9); IMMATURE GRAN ABSOLUTE AUTO 0.03 K/uL (0.00-0.23); IMMATURE GRAN PERCENT AUTO 0.3 % (0.0-0.7); LYMPHOCYTES ABSOLUTE AUTO 1.51 K/uL (0.8-3.3); MEAN CORPUSCULAR HGB CONC 34.3 g/dL (31.6-35.5); MEAN CORPUSCULAR VOLUME 90.4 fL (81.4-99.0); MONOCYTES ABSOLUTE AUTO 0.61 K/uL (0.20-0.90); MONOCYTES PERCENT AUTO 6.4 % (3.3-12.6); NEUTROPHILS ABSOLUTE AUTO 7.09 K/uL (1.0-7.6); PLATELET COUNT,PLT 333 K/uL (130-375); RED BLOOD CELL COUNT 4.16 M/uL (4.14-5.76); WHITE BLOOD CELL COUNT,WBC 9.5 K/uL (3.2-11.0)
[2023-12-30 17:43] LABS: A/G RATIO 1.1 (1.2-2.2); ALANINE AMINOTRANSFERASE,ALT 49 U/L (12-78); ALBUMIN 3.8 g/dL (3.4-5.0); ALKALINE PHOSPHATASE 96 U/L (46-116); ASPARTATE AMNIOTRANSFERASE,AST 30 U/L (15-37); BILIRUBIN TOTAL 0.4 mg/dL (0.2-1.0); BLOOD UREA NITROGEN,BUN 13 mg/dL (7-18); CARBON DIOXIDE,CO2 28 mmol/L (21-32); CHLORIDE,CL 104 mmol/L (100-108); CREATININE 1.2 mg/dL (0.8-1.3); EST CRCL DRUG DOSING (CG) 72.01 mL/min; ESTIMATED GFR 73 mL/min (>60); GLUCOSE RANDOM 98 mg/dL (74-106); POTASSIUM,K 4.3 mmol/L (3.6-5.2); PROTEIN TOTAL,TP 7.4 g/dL (6.4-8.2); SODIUM,NA 139 mmol/L (140-148); TROPONIN I HIGH SENSITIVITY 4.7 pg/mL (<=60.3)
[2023-12-30 17:45] LABS: ANION GAP 11.3 mmol/L (5.0-14.0)
[2023-12-30] MEDS: Bacitracin Oint 1 GM U/D Packet TOP ONE (18:15)
[2023-12-30] MEDS: Diphtheria,Pertussis(Acell),Tetanus Vaccine 0.5 ML Syringe IM ONE (18:15)
[2023-12-30] MEDS: Lidocaine 1% 10 ML MDV INJECT ONE (18:15)
== END 2023-12-30 19:11 | disposition home or self-care (01) ==
LOC: JP.ED 15:54
DX: S01.81XA Laceration without foreign body of other part of head, initial encounter (principal); E78.00 Pure hypercholesterolemia, unspecified; I10 Essential (primary) hypertension; Z79.899 Other long term (current) drug therapy; Z23 Encounter for immunization; W22.8XXA Striking against or struck by other objects, initial encounter
CPT/HCPCS: 12013; 36415; 70450; 70450-26; 72125; 72125-26; 73562-26-RT; 73562-RT; 76377; 80053; 80307; 84484; 85025; 90471; 90715; 93005; 93010; 99283; 99284-25

== ENCOUNTER 2024-04-05 15:43 | Inpatient (IN) | payer MEDICAID ==
[2024-04-05 17:35] LABS: BASOPHILS ABSOLUTE AUTO 0.08 K/uL (0.00-0.10); BASOPHILS PERCENT AUTO 1.3 % (0.1-1.3); EOSINOPHILS ABSOLUTE AUTO 0.12 K/uL (0.00-0.40); HEMATOCRIT 36.2 % (38.4-49.7); HEMOGLOBIN 12.8 g/dL (12.9-16.9); IMMATURE GRAN PERCENT AUTO 0.2 % (0.0-0.7); LYMPHOCYTES ABSOLUTE AUTO 2.01 K/uL (0.8-3.3); LYMPHOCYTES PERCENT AUTO 33.2 % (11.4-47.7); MEAN CORPUSCULAR HGB CONC 35.4 g/dL (31.6-35.5); MONOCYTES ABSOLUTE AUTO 0.51 K/uL (0.20-0.90); MONOCYTES PERCENT AUTO 8.4 % (3.3-12.6); NEUTROPHILS ABSOLUTE AUTO 3.33 K/uL (1.0-7.6); NEUTROPHILS PERCENT AUTO 54.9 % (40.0-78.1); PLATELET COUNT,PLT 274 K/uL (130-375); RED BLOOD CELL COUNT 4.26 M/uL (4.14-5.76); WHITE BLOOD CELL COUNT,WBC 6.1 K/uL (3.2-11.0)
[2024-04-05 17:36] LABS: IMMATURE GRAN ABSOLUTE AUTO 0.01 K/uL (0.00-0.23)
[2024-04-05 18:04] LABS: A/G RATIO 1.2 (1.2-2.2); ALANINE AMINOTRANSFERASE,ALT 29 U/L (12-78); ALBUMIN 3.8 g/dL (3.4-5.0); ALKALINE PHOSPHATASE 92 U/L (46-116); ASPARTATE AMNIOTRANSFERASE,AST 23 U/L (15-37); BILIRUBIN TOTAL 0.4 mg/dL (0.2-1.0); BLOOD UREA NITROGEN,BUN 9 mg/dL (7-18); CALCIUM 8.6 mg/dL (8.5-10.1); CARBON DIOXIDE,CO2 27 mmol/L (21-32); CHLORIDE,CL 105 mmol/L (100-108); CREATININE 1.3 mg/dL (0.8-1.3); EST CRCL DRUG DOSING (CG) 65.71 mL/min; ESTIMATED GFR 66 mL/min (>60); GLUCOSE RANDOM 91 mg/dL (74-106); POTASSIUM,K 3.5 mmol/L (3.6-5.2); PROTEIN TOTAL,TP 6.9 g/dL (6.4-8.2); SODIUM,NA 142 mmol/L (140-148)
[2024-04-05 18:05] LABS: ANION GAP 13.5 mmol/L (5.0-14.0); C-REACTIVE PROTEIN < 0.50 mg/dL (<0.50)
[2024-04-05] MEDS: Ondansetron 4 MG/2 ML SDV IVPUSH ONE (18:35)
[2024-04-05] MEDS: Ketorolac 30 MG/ML SDV IVPUSH ONE (18:39)
[2024-04-05] MEDS: Sodium Chloride 0.9% 80 ML IV SCH (21:22)
[2024-04-05] MEDS: Iopamidol 612 MG/ML 100 ML Bottle IV SCH (21:22)
[2024-04-05] MEDS: HYDROmorphone 1 MG/ML Syringe IVPUSH ONE (23:09)
[2024-04-05] MEDS: Pantoprazole 40 MG Vial IVPUSH ONE (23:13)
[2024-04-06] MEDS ORDERED: Sodium Chloride 0.9% 10 ML Syringe FLUSH PRN (01:03)
[2024-04-06] MEDS ORDERED: Naloxone 0.4 MG/ML SDV IVPUSH PRN (01:03)
[2024-04-06] MEDS ORDERED: Ondansetron 4 MG/2 ML SDV IV PRN (01:03)
[2024-04-06] MEDS ORDERED: Polyethylene Glycol 3350 Powder 17 GM Packet PO PRN (01:03)
[2024-04-06] MEDS ORDERED: Acetaminophen 325 MG Tab PO PRN (01:03)
[2024-04-06] MEDS ORDERED: Albuterol/Ipratropium 3.0-0.5 MG/3 ML Neb Soln INH PRN (01:03)
[2024-04-06] MEDS: Sodium Chloride 0.9% 1,000 ML IV SCH (01:59)
[2024-04-06] MEDS: Doxycycline 100 MG Cap PO SCH ×2 (02:00→11:33)
[2024-04-06] MEDS: Apixaban 5 MG Tab PO SCH ×2 (02:00→08:49)
[2024-04-06] MEDS: HYDROmorphone 0.5 MG/0.5 ML Syringe IVPUSH PRN (02:01)
[2024-04-06 05:39] LABS: HEMATOCRIT 35.4 % (38.4-49.7); HEMOGLOBIN 12.4 g/dL (12.9-16.9); MEAN CORPUSCULAR HEMOGLOBIN 30.1 pg (31.6-35.5); MEAN CORPUSCULAR VOLUME 85.9 fL (81.4-99.0); RED BLOOD CELL COUNT 4.12 M/uL (4.14-5.76); WHITE BLOOD CELL COUNT,WBC 5.2 K/uL (3.2-11.0)
[2024-04-06 06:07] LABS: A/G RATIO 1.2 (1.2-2.2); ALANINE AMINOTRANSFERASE,ALT 28 U/L (12-78); ALBUMIN 3.4 g/dL (3.4-5.0); ALKALINE PHOSPHATASE 88 U/L (46-116); ASPARTATE AMNIOTRANSFERASE,AST 23 U/L (15-37); BILIRUBIN TOTAL 0.5 mg/dL (0.2-1.0); BLOOD UREA NITROGEN,BUN 9 mg/dL (7-18); CALCIUM 8.1 mg/dL (8.5-10.1); CARBON DIOXIDE,CO2 25 mmol/L (21-32); CHLORIDE,CL 107 mmol/L (100-108); CREATININE 1.2 mg/dL (0.8-1.3); EST CRCL DRUG DOSING (CG) 71.19 mL/min; ESTIMATED GFR 72 mL/min (>60); GLUCOSE RANDOM 86 mg/dL (74-106); POTASSIUM,K 3.7 mmol/L (3.6-5.2); PROTEIN TOTAL,TP 6.3 g/dL (6.4-8.2); SODIUM,NA 142 mmol/L (140-148)
[2024-04-06] MEDS: Pantoprazole 40 MG Tab.CR PO SCH (08:45)
[2024-04-06] MEDS: Sucralfate 1 GM Tab PO SCH (08:45)
[2024-04-06] MEDS: amLODIPine 5 MG Tab PO SCH (08:46)
[2024-04-06] MEDS: busPIRone 5 MG Tab PO SCH (08:46)
[2024-04-06] MEDS: Lisinopril 20 MG Tab PO SCH (08:47)
[2024-04-06] MEDS: Cetirizine 10 MG Tab PO SCH (08:48)
[2024-04-06] MEDS ORDERED: EPLERENONE 50 MG PO SCH (09:00)
[2024-04-06 09:34] LABS: APPEARANCE,URINE CLEAR (CLEAR); BILIRUBIN,URINE NEGATIVE (NEGATIVE); COLOR,URINE YELLOW (YELLOW); GLUCOSE,URINE NEGATIVE (NEGATIVE); KETONES,URINE NEGATIVE (NEGATIVE); LEUKOCYTE ESTERASE,URINE NEGATIVE (NEGATIVE); NITRITE,URINE NEGATIVE (NEGATIVE); OCCULT BLOOD,URINE NEGATIVE (NEGATIVE); PH,URINE 7.5 (5.0-8.0); PROTEIN,URINE NEGATIVE (NEGATIVE); UROBILINOGEN,URINE 0.2 EU/dL (0.2-1.0)
[2024-04-06 09:35] LABS: RBC,URINE 0-5 (0-5); WBC,URINE 0-5 (0-5)
[2024-04-06 09:36] LABS: BACTERIA,URINE RARE; EPITHELIAL CELLS,URINE NOT SEEN; MUCUS,URINE NOT SEEN
[2024-04-06 09:37] LABS: AMORPHOUS SEDIMENT,URINE MODERATE
[2024-04-06] MEDS: oxyCODONE 5 MG Tab PO PRN (11:31)
[2024-04-06] MEDS: EPLERENONE 50 MG PO SCH (12:55)
[2024-04-06] MEDS ORDERED: Non-Formulary Medication 1 Each (Gabapentin [Neurontin] 800 MG Tablet) PO SCH (21:00)
[2024-04-06] MEDS: Gabapentin 400 MG Cap PO SCH (21:36)
[2024-04-06] MEDS: DULoxetine 30 MG Cap PO SCH (21:37)
[2024-04-07 10:10] VITALS: BP 109/71; PULSE 67
== END 2024-04-07 10:20 | disposition home or self-care (01) | DRG 440 ==
LOC: JP.ED 15:43 → JP.ICU 23:41
PROVIDERS: ADMIT Hospitalist; ATTEND Hospitalist
DX: K85.30 Drug induced acute pancreatitis without necrosis or infection (principal); K59.09 Other constipation; K21.9 Gastro-esophageal reflux disease without esophagitis; R91.1 Solitary pulmonary nodule; E78.00 Pure hypercholesterolemia, unspecified; K08.89 Other specified disorders of teeth and supporting structures; F41.9 Anxiety disorder, unspecified; I10 Essential (primary) hypertension; Z86.718 Personal history of other venous thrombosis and embolism; Z79.01 Long term (current) use of anticoagulants; Z86.711 Personal history of pulmonary embolism
CPT/HCPCS: 36415; 74018; 74018-26; 74177; 80053; 80307; 81001; 83605; 83690; 85025; 85027; 86140; 93005; 96374; 96375; 99285-25; A9270-GY; J1170; J1885; J2405; J2470; J3490; J7030; Q9967

== ENCOUNTER 2024-09-25 06:33 | Day surgery (SDC) | payer MEDICAID ==
[2024-09-25] MEDS ORDERED: Propofol 200 MG/20 ML SDV ONE ×2 (07:25→07:57)
[2024-09-25] MEDS ORDERED: Midazolam 1 MG/ML 2 ML SDV ONE (07:25)
[2024-09-25] MEDS ORDERED: fentaNYL 100 MCG/2 ML SDV ONE (07:25)
[2024-09-25] MEDS: Lactated Ringers 1,000 ML IV SCH (07:28)
[2024-09-25 09:02] VITALS: BP 128/90; PULSE 75
== END 2024-09-25 09:10 | disposition home or self-care (01) ==
LOC: JP.SDS 06:33
PROVIDERS: ATTEND Surgery
DX: K64.8 Other hemorrhoids (principal); K21.9 Gastro-esophageal reflux disease without esophagitis; G47.33 Obstructive sleep apnea (adult) (pediatric)
CPT/HCPCS: 45398; J2250; J2704; J3010; J7120

== ENCOUNTER 2024-09-30 17:14 | Emergency (ER) | payer MEDICAID ==
[2024-09-30 18:02] LABS: BASOPHILS ABSOLUTE AUTO 0.08 K/uL (0.00-0.10); BASOPHILS PERCENT AUTO 1.1 % (0.1-1.3); EOSINOPHILS ABSOLUTE AUTO 0.21 K/uL (0.00-0.40); HEMOGLOBIN 14.8 g/dL (12.9-16.9); IMMATURE GRAN ABSOLUTE AUTO 0.02 K/uL (0.00-0.23); IMMATURE GRAN PERCENT AUTO 0.3 % (0.0-0.7); LYMPHOCYTES ABSOLUTE AUTO 1.91 K/uL (0.8-3.3); LYMPHOCYTES PERCENT AUTO 27.3 % (11.4-47.7); MEAN CORPUSCULAR HEMOGLOBIN 31.9 pg (31.6-35.5); MEAN CORPUSCULAR HGB CONC 34.4 g/dL (31.6-35.5); MEAN CORPUSCULAR VOLUME 92.7 fL (81.4-99.0); MONOCYTES ABSOLUTE AUTO 0.72 K/uL (0.20-0.90); MONOCYTES PERCENT AUTO 10.3 % (3.3-12.6); NEUTROPHILS ABSOLUTE AUTO 4.05 K/uL (1.0-7.6); PLATELET COUNT,PLT 272 K/uL (130-375); RED BLOOD CELL COUNT 4.64 M/uL (4.14-5.76)
[2024-09-30 18:20] LABS: A/G RATIO 1.2 (1.2-2.2); ALANINE AMINOTRANSFERASE,ALT 40 U/L (12-78); ALBUMIN 3.8 g/dL (3.4-5.0); ALKALINE PHOSPHATASE 75 U/L (46-116); ANION GAP 10.7 mmol/L (5.0-14.0); ASPARTATE AMNIOTRANSFERASE,AST 24 U/L (15-37); BILIRUBIN TOTAL 0.3 mg/dL (0.2-1.0); BLOOD UREA NITROGEN,BUN 12 mg/dL (7-18); CALCIUM 9.3 mg/dL (8.5-10.1); CARBON DIOXIDE,CO2 25 mmol/L (21-32); CHLORIDE,CL 105 mmol/L (100-108); CREATININE 1.3 mg/dL (0.8-1.3); EST CRCL DRUG DOSING (CG) 67.85 mL/min; ESTIMATED GFR 66 mL/min (>60); GLUCOSE RANDOM 115 mg/dL (74-106); PROTEIN TOTAL,TP 7.1 g/dL (6.4-8.2); SODIUM,NA 141 mmol/L (140-148); TROPONIN I HIGH SENSITIVITY 7.4 pg/mL (<=60.3)
[2024-09-30 19:06] LABS: APPEARANCE,URINE CLEAR (CLEAR); BILIRUBIN,URINE NEGATIVE (NEGATIVE); COLOR,URINE YELLOW (YELLOW); GLUCOSE,URINE NEGATIVE (NEGATIVE); KETONES,URINE NEGATIVE (NEGATIVE); LEUKOCYTE ESTERASE,URINE NEGATIVE (NEGATIVE); NITRITE,URINE NEGATIVE (NEGATIVE); OCCULT BLOOD,URINE NEGATIVE (NEGATIVE); PROTEIN,URINE NEGATIVE (NEGATIVE); UROBILINOGEN,URINE 0.2 EU/dL (0.2-1.0)
[2024-09-30] MEDS: Sodium Chloride 0.9% 80 ML IV ONE (19:14)
[2024-09-30] MEDS: Sodium Chloride 0.9% 10 ML Syringe FLUSH ONE (19:14)
[2024-09-30] MEDS: Iopamidol 612 MG/ML 100 ML Bottle IV ONE (19:14)
[2024-09-30] MEDS: Albuterol/Ipratropium 3.0-0.5 MG/3 ML Neb Soln NEB ONE (19:28)
[2024-09-30 19:35] LABS: AMORPHOUS SEDIMENT,URINE OCCASIONAL; BACTERIA,URINE NOT SEEN; EPITHELIAL CELLS,URINE NOT SEEN; MUCUS,URINE NOT SEEN; RBC,URINE NOT SEEN (0-5); WBC,URINE NOT SEEN (0-5)
[2024-09-30] MEDS: Dexamethasone 4 MG/ML SDV IVPUSH ONE (21:30)
[2024-09-30] MEDS: Bupivacaine 0.25% 10 ML SDV INJECT ONE (21:30)
[2024-09-30 22:20] VITALS: BP 148/113; PULSE 85
== END 2024-09-30 22:19 | disposition home or self-care (01) ==
LOC: JP.ED 17:14
DX: M25.512 Pain in left shoulder (principal); I10 Essential (primary) hypertension; I48.91 Unspecified atrial fibrillation; F17.210 Nicotine dependence, cigarettes, uncomplicated; Z79.01 Long term (current) use of anticoagulants; Z79.51 Long term (current) use of inhaled steroids; Z79.899 Other long term (current) drug therapy
CPT/HCPCS: 20552; 36415; 71046; 72040; 74177; 80053; 81001; 83690; 84484; 85025; 85379; 93005; 94640; 96374; 99285; J1100; J3490; Q9967; J7620

== ENCOUNTER 2024-12-06 08:18 | Day surgery (SDC) | payer MEDICAID ==
[2024-12-06] MEDS: Lactated Ringers 1,000 ML IV SCH (09:04)
[2024-12-06] MEDS ORDERED: fentaNYL 50 MCG/ML SDV ONE (09:23)
[2024-12-06] MEDS ORDERED: Propofol 200 MG/20 ML SDV ONE ×2 (09:23→10:35)
[2024-12-06] MEDS ORDERED: Midazolam 1 MG/ML 2 ML SDV ONE (09:23)
[2024-12-06 11:51] VITALS: BP 130/93; PULSE 53
== END 2024-12-06 12:13 | disposition home or self-care (01) ==
LOC: JP.SDS 08:18
PROVIDERS: ATTEND Surgery
DX: K64.9 Unspecified hemorrhoids (principal); K62.1 Rectal polyp; I10 Essential (primary) hypertension; K21.9 Gastro-esophageal reflux disease without esophagitis; E78.5 Hyperlipidemia, unspecified; F17.200 Nicotine dependence, unspecified, uncomplicated; G47.33 Obstructive sleep apnea (adult) (pediatric)
CPT/HCPCS: 00813; 43239; 45380; 45398; 88305; J2250; J2704; J3010; J7120